=== PATIENT | female | born 1995 | race Caucasian/White ===

== ENCOUNTER 2020-04-06 07:42 | Outpatient (CLI) | payer OTHER ==
[2020-04-06 08:11] VITALS: BP 119/66
[2020-04-06 08:52] LABS: BILIRUBIN,URINE NEGATIVE (NEGATIVE); CLARITY,URINE CLEAR (CLEAR); GLUCOSE, URINE (UA) NEGATIVE (NEGATIVE); KETONES,URINE (UA) NEGATIVE (NEGATIVE); LEUKOCYTE ESTERASE, URINE NEGATIVE (NEGATIVE); NITRITE,URINE NEGATIVE (NEGATIVE); OCCULT BLOOD,URINE NEGATIVE (NEGATIVE); PH,URINE 7.5 PH (5.0-7.5); PROTEIN,URINE NEGATIVE (NEGATIVE); UROBILINOGEN,URINE 0.2 (NORMAL) E.U./dL (NORMAL)
[2020-04-06 08:59] LABS: BACTERIA,URINE Few /HPF (None Seen); RBC,URINE 0-5 /HPF (0-5); SQUAMOUS EPITHELIAL CELL,UR RARE Squamous (<= Few)
--- NOTE | 2020-04-06 10:21 | Ultrasound Report ---
PROCEDURE: OB Limited INDICATIONS: PTL OUTSIDE/PRIOR DATING DATA: Last menstrual period (LMP): 10/27/2019. LMP-based estimated date of delivery (SUSU): 08/02/2020. First dating scan (date and location): None available. Estimated date of delivery (SUSU) from first dating scan: Not applicable. TECHNIQUE: Real-time scanning was performed of the fetus, with image documentation. Endovaginal scanning: Performed for greater detail of cervix COMPARISON: None. FINDINGS: A single living intrauterine gestation is present. Presentation: Breech Placenta: Placental position is anterior, without previa or abruption. Amniotic fluid index: 11.4 cm, normal for gestational age. heart rate: 139 beats per minutes. Maternal cervical canal: 4.8 cm long; normal length is 2.5 cm or more. Estimated gestational age from initial scan: Not applicable. biometrics: Biparietal diameter 5.5 cm, 22 weeks, 5 days Head circumference 20.8 cm, 22 weeks, 5 days Abdominal circumference 18.9 cm, 23 weeks, 5 days Femur length 4.0 cm, 23 weeks, 0 days Composite gestational age 23 weeks, 1 day Estimated weight 582 g. IMPRESSION: 1. Single living intrauterine with a composite gestational age of 23 weeks, 1 day. 2. Closed, normal length cervix, and normal amniotic fluid volume. 3. Anterior placenta without evidence of abruption. 4. Preliminary results given by the pediatric anesthesiologist to the ordering provider. Reviewed by: Tory Hernandez MD on 04/06/2020 9:20 AM MARTINA Approved by: Tory Hernandez MD on 04/06/2020 9:20 AM MARTINA Station ID: [id number]
--- NOTE | 2020-04-06 10:22 | Ultrasound Report ---
PROCEDURE: OB Limited INDICATIONS: PTL OUTSIDE/PRIOR DATING DATA: Last menstrual period (LMP): 10/27/2019. LMP-based estimated date of delivery (SUSU): 08/02/2020. First dating scan (date and location): None available. Estimated date of delivery (SUSU) from first dating scan: Not applicable. TECHNIQUE: Real-time scanning was performed of the fetus, with image documentation. Endovaginal scanning: Performed for greater detail of cervix COMPARISON: None. FINDINGS: A single living intrauterine gestation is present. Presentation: Breech Placenta: Placental position is anterior, without previa or abruption. Amniotic fluid index: 11.4 cm, normal for gestational age. heart rate: 139 beats per minutes. Maternal cervical canal: 4.8 cm long; normal length is 2.5 cm or more. Estimated gestational age from initial scan: Not applicable. biometrics: Biparietal diameter 5.5 cm, 22 weeks, 5 days Head circumference 20.8 cm, 22 weeks, 5 days Abdominal circumference 18.9 cm, 23 weeks, 5 days Femur length 4.0 cm, 23 weeks, 0 days Composite gestational age 23 weeks, 1 day Estimated weight 582 g. IMPRESSION: 1. Single living intrauterine with a composite gestational age of 23 weeks, 1 day. 2. Closed, normal length cervix, and normal amniotic fluid volume. 3. Anterior placenta without evidence of abruption. 4. Preliminary results given by the stitch wheeler to the ordering provider. Reviewed by: Tory Hernandez MD on 04/06/2020 9:21 AM MARTINA Approved by: Tory Hernandez MD on 04/06/2020 9:21 AM MARTINA Station ID: [id number]
[2020-04-06 10:32] LABS: CANDIDA GROUP DNA NEGATIVE (NEGATIVE); CANDIDA KRUSEI DNA NEGATIVE (NEGATIVE); TRICHOMONAS VAGINALIS DNA NEGATIVE (NEGATIVE)
--- NOTE | 2020-04-20 09:09 | PROVIDER PROGRESS NOTE ---
- HPI Chief Complaint: Other (Patient is a 24 yo at 23+1 wga here for abdominal pain/cramping. No LOF/VB/active CTX. [place] prior to presentation. [place]. [facility]. Outside records obtained and reviewed. Uncomplicated PNC.) Current : Current EDU 08/02/20 Gestation 23 Weeks and 1 Days 1 Para 0 Vital Signs Temperature 99.1 F 04/06/20 08:10 Heart Rate 99 04/06/20 08:10 Respiratory Rate 16 04/06/20 08:10 Blood Pressure 119/66 04/06/20 08:10 O2 Saturation 100 04/06/20 08:10 Temperature 98.2 F 04/06/20 09:38 Heart Rate 99 04/06/20 08:10 Respiratory Rate 16 04/06/20 08:10 Blood Pressure 119/66 04/06/20 08:10 O2 Saturation 100 04/06/20 08:10 - Exam GEN: NAD HEENT: NAD CV: RRR RESP: CTAB ABD: gravid, S&NT/ND SVE: Closed/long/high. No blood in vaginal vault EXT: WWP PSYCH: Bright and reactive affect NEURO: A&O - Procedures NST Procedure: Dopplers 155 Service Date of procedure: 04/06/20 Findings: TVCL: 4.8 cm FFN positive BV neg UA wnl Obtained outside records: FAS wnl O pos/ GCCT neg 01/31/20 Treated for Ecoli UTI 03/30/20 - Plan Plan: 24 yo at 23+1 wga here for abdominal cramping Treated for E.coli UTI on 03/30/2020, Normal UA today FFN positive but patient had IC prior to presentation TVCL 4.2 cm No change in SVE over period of observation Cramping likely related to recency of IC No ctx on tocometry Dopplers wnl for previable Warning signs reviewed DC to home
== END 2020-04-06 10:45 | disposition home or self-care (01) ==
LOC: WFO 07:42 → FBP 07:44 → WFO 10:45
PROVIDERS: ATTEND Obstetrics & Gynecology
DX: O99.89 Other specified diseases and conditions complicating pregnancy, childbirth and the puerperium (principal); R10.9 Unspecified abdominal pain; Z3A.23 23 weeks gestation of pregnancy; Z87.440 Personal history of urinary (tract) infections
CPT/HCPCS: 76815; 76817; 81001; 82731; 87086; 87661; 87801; 99214